=== PATIENT | female | born 1980 | race Caucasian/White ===

== ENCOUNTER 2018-01-12 16:09 | Inpatient (IN) ==
[2018-01-16] MEDS ORDERED: HYDROmorphone PF Inj 2 MG/ML Vial ONE (23:16)
[2018-01-17] MEDS ORDERED: Naloxone Inj 0.4 MG/ML Vial IV.PUSH PRN (00:01)
[2018-01-17] MEDS ORDERED: Dextrose 50% in Water 50 ML Vial IV.PUSH PRN (00:01)
[2018-01-17] MEDS ORDERED: HYDROmorphone PF Inj 2 MG/ML Vial IV.PUSH PRN (00:01)
[2018-01-17] MEDS ORDERED: Acetaminophen 325 MG Tablet PO PRN (00:01)
[2018-01-17] MEDS: Sod Chloride 0.9% Inj 1,000 ML IV.SIG SCH ×3 (03:41→19:38)
[2018-01-17] MEDS: Lisinopril 20 MG Tablet PO SCH (08:41)
[2018-01-17] MEDS: Pantoprazole Sodium 20 MG DR Tablet PO SCH (08:41)
[2018-01-17] MEDS: FLUoxetine 10 MG Capsule PO SCH (08:42)
[2018-01-17 08:46] LABS: Anion Gap 9 meq/L (5-15); Blood Urea Nitrogen 6 mg/dL (7-18); Calcium 8.5 mg/dL (8.5-10.1); Carbon Dioxide 25.4 meq/L (21.0-32.0); Chloride 105 meq/L (98-107); Cholesterol 359 mg/dL (120-200); Glomerular Filtration Rate Greater Than 89 mL/min (>89); Glucose,Random 205 mg/dL (74-106); Potassium 3.5 meq/L (3.5-5.1); Sodium 139 meq/L (136-145); Triglycerides 534 mg/dL (42-150)
[2018-01-17 08:49] LABS: HDL Cholesterol 25.1 mg/dL (40.0-60.0)
[2018-01-17] MEDS ORDERED: Senna/Docusate Sodium 8.6/50 MG Tablet PO SCH (09:00)
[2018-01-17] MEDS: Insulin Detemir Inj 1,000 UNIT/10 ML Vial SQ SCH ×2 (09:04→21:55)
[2018-01-17] MEDS: Insulin NovoLOG Aspart Correctional Sugar Inj SQ SCH ×4 (09:04→21:56)
[2018-01-17] MEDS: [UNRECOGNIZED DRUG - OTHER] PO SCH ×3 (10:27→17:49)
[2018-01-17] MEDS: Gemfibrozil 600 MG Tablet PO SCH ×2 (10:30→17:47)
--- NOTE | 2018-01-17 13:46 | P.PNIM ---
Subjective Interval history: Pt is having significant diarrhea which seems to be worsening over the last day or so No melena or BRBPR Tolerating regular consistency diet Afebrile Physical Exam Vital signs: Vital Signs 01/17/18 00:00 01/17/18 01:45 01/17/18 02:58 Temperature 98.2 F Pulse Rate 77 Respiratory Rate 18 18 18 Blood Pressure 169/82 H Pulse Oximetry 96 01/17/18 04:00 01/17/18 08:00 01/17/18 12:00 Temperature 97.5 F L 97.8 F 98.3 F Pulse Rate 77 75 84 Respiratory Rate 18 18 17 Blood Pressure 146/85 H 158/82 H 183/90 H Pulse Oximetry 93 L 95 95 Intake & Output 01/16/18 01/17/18 01/17/18 18:59 06:59 18:59 Weight 85 kg 85.1 kg Other: # Voids 5 # Bowel Movements 2 Narrative: General: NAD, AAOx3 Chest: CTA Cardiac: Regular Abd: +BS, soft ND/NT Ext: No edema Results - Labs CBC & Chem 7: 01/20/18 04:55 01/20/18 04:55 Laboratory Results - last 24 hr 01/13/18 01/13/18 01/14/18 09:55 09:55 03:14 WBC 14.2 H RBC 4.95 Hgb 12.6 D Hct 37.5 MCV 75.8 L MCH 25.4 L MCHC 33.5 RDW 15.7 Plt Count 487 H MPV 7.7 Neut % (Auto) 77.1 H Lymph % (Auto) 17.5 [place] % (Auto) 4.6 Eos % (Auto) 0.3 Baso % (Auto) 0.5 Neut # (Auto) 10.5 H Lymph # (Auto) 2.4 [place] # (Auto) 0.6 Eos # (Auto) 0.0 Baso # (Auto) 0.1 CBC Comment AUTO DIFF Total Counted 100 Neutrophils % (Manual) 76 H Band Neutrophils % 1 Lymphocytes % 20 Monocytes % 2 Neutrophils # (Manual) 11.1 H Myelocytes 1 H Differential Comment FINAL DIFF MANUAL Platelet Estimate HIGH H Plt Morphology Comment NORMAL RBC Morph Comment NORMAL Hematology Comments Sodium 132 L 135 L Potassium 3.9 4.2 Chloride 99 105 Carbon Dioxide 17.3 L D 20.7 L Anion Gap 16 H 9 BUN 2 L 5 L Creatinine 0.41 L 0.57 Estimated GFR 174 119 Random Glucose 284 H 188 H Hemoglobin A1c 11.1 H Calcium 7.6 L 8.1 L Total Bilirubin 0.9 AST 28 ALT 37 Alkaline Phosphatase 115 Total Protein 8.2 D Albumin 3.2 L Triglycerides 2860 H 1450 H Cholesterol 433 H D 344 H D LDL Cholesterol, Calc LDL Cholesterol HDL Cholesterol 27.3 L 33.2 L Cholesterol/HDL Ratio 15.86 10.36 Lipase 916 H 01/14/18 01/15/18 01/16/18 03:14 05:32 06:21 WBC 11.3 H RBC 4.44 Hgb 11.1 L Hct 33.3 L MCV 74.9 L MCH 25.0 L MCHC 33.3 RDW 15.9 Plt Count 352 MPV 7.6 Neut % (Auto) 75.2 H Lymph % (Auto) 19.8 [place] % (Auto) 3.8 Eos % (Auto) 0.5 Baso % (Auto) 0.7 Neut # (Auto) 8.5 H Lymph # (Auto) 2.2 [place] # (Auto) 0.4 Eos # (Auto) 0.1 Baso # (Auto) 0.1 CBC Comment DIFF FINAL Total Counted Neutrophils % (Manual) Band Neutrophils % Lymphocytes % Monocytes % Neutrophils # (Manual) Myelocytes Differential Comment Platelet Estimate Plt Morphology Comment RBC Morph Comment Hematology Comments Sodium 139 Potassium 3.7 Chloride 105 Carbon Dioxide 26.0 Anion Gap 8 BUN 4 L Creatinine 0.40 L Estimated GFR 179 Random Glucose 217 H Hemoglobin A1c Calcium 8.3 L Total Bilirubin AST ALT Alkaline Phosphatase Total Protein Albumin Triglycerides 926 H 594 H Cholesterol 411 H D 388 H LDL Cholesterol, Calc LDL Cholesterol HDL Cholesterol 37.1 L 30.5 L Cholesterol/HDL Ratio 11.07 12.72 Lipase 158 01/17/18 06:33 WBC RBC Hgb Hct MCV MCH MCHC RDW Plt Count MPV Neut % (Auto) Lymph % (Auto) [place] % (Auto) Eos % (Auto) Baso % (Auto) Neut # (Auto) Lymph # (Auto) [place] # (Auto) Eos # (Auto) Baso # (Auto) CBC Comment Total Counted Neutrophils % (Manual) Band Neutrophils % Lymphocytes % Monocytes % Neutrophils # (Manual) Myelocytes Differential Comment Platelet Estimate Plt Morphology Comment RBC Morph Comment Hematology Comments Sodium 139 Potassium 3.5 Chloride 105 Carbon Dioxide 25.4 Anion Gap 9 BUN 6 L Creatinine 0.42 L Estimated GFR Greater than 89 Random Glucose 205 H Hemoglobin A1c Calcium 8.5 Total Bilirubin AST ALT Alkaline Phosphatase Total Protein Albumin Triglycerides 534 H Cholesterol 359 H LDL Cholesterol, Calc LDL Cholesterol HDL Cholesterol 25.1 L Cholesterol/HDL Ratio 14.30 Lipase Assessment and Plan - Assessment (1) Pancreatitis Code(s): K85.90 - Acute pancreatitis without necrosis or infection, unspecified Status: Acute Plan: Acute pancreatitis secondary to hypertriglyceridemia. - This is a 38 year old female with HTN, iron deficiency anemia, PCOS, anxiety/ depression, DM type [address] Bryson, stage 3 cirrhosis, fatty liver, hereditary hypertriglyceridemia (per out patient records triglycerides as high as 5300 in 2017) and pancreatitis about 5 year ago. - Pt admitted with abdominal pain, N/V x 3-4 days and her labs at admission noted Lipase 1397 - CT abd/pelvis (01/12/18) --> There are mild inflammatory type changes surrounding the tail the pancreas. Otherwise, the pancreas demonstrates no abnormality. These findings could represent a mild acute pancreatitis. Nonacute findings include hepatomegaly with steatosis and splenomegaly. - Lipid panel on 01/12 revealed triglycerides 6100 and HgbA1c 11.1% - Pt was started on aggressive IVF with NS - She was started on Lopid/niacin. no omega fatty acid on formulary. resume [place] on dc - Stopped TriCor and Crestor. - On 01/13 pt was moved to ICU for insulin infusion to rapidly lower triglycerides. - Repeat labs on showed the trend down to 2860 (01/13) --> 1450 (01/14) --> 926 () --> 594 (01/16) - She was transferred out of ICU on 01/15 and started on basal/bolus regimen with Levemir 20 units BID and NovoLog SSI - Pt will need to overhaul her DM control as her A1c is rising. There is probably also a component of diet noncompliance - Levemir titrated up to 25units BID on 01/16 - Pain control PRN - Pt tolerating advance to diabetic diet - She started having diarrhea the last 2 days. Stop stool softener. Check stool for C. diff. If negative can given Imodium. - Give some gentle IVF today - Pt will need endo f/u upon discharge DVT prophylaxis with SCDs (2) Hypertriglyceridemia Code(s): E78.1 - Pure hyperglyceridemia Status: Chronic Plan: Hereditary hypertriglyceridemia - See above (3) Diabetes Code(s): E11.9 - Type 2 diabetes mellitus without complications Status: Chronic Plan: Diabetes mellitus - See above (4) HTN (hypertension) Code(s): I10 - Essential (primary) hypertension Status: Chronic Plan: Hypertension - Continue patient's lisinopril 20 mg p.o. daily (5) Depression Code(s): F32.9 - Major depressive disorder, single episode, unspecified Status : Chronic Plan: Anxiety/depression - Continue patient's home fluoxetine 30 mg daily - Attending Attestation The exam, history, and the medical decision-making described in the above note were completed with the assistance of the mid-level provider. I reviewed and agree with the findings presented. I attest that I had a [id number] encounter with the patient on the same day, and personally performed and documented my assessment and findings in the medical record. Patient examined. Assessment and plan formulated with Yenni Mcaculey PA-C. I agree with the above. (3) Diabetes Qualifiers: Diabetes mellitus type: type 2
[2018-01-17] MEDS: KCL 20 mEq/NACL 0.45% Inj 1,000 ML IV.CONT SCH (17:26)
[2018-01-18] MEDS: KCL 20 mEq/NACL 0.45% Inj 1,000 ML IV.CONT SCH ×2 (00:18→16:04)
[2018-01-18] MEDS: [UNRECOGNIZED DRUG - OTHER] PO SCH ×3 (00:18→16:01)
[2018-01-18] MEDS: Sod Chloride 0.9% Inj 1,000 ML IV.SIG SCH ×3 (02:54→18:33)
[2018-01-18 05:19] LABS: Anion Gap 9 meq/L (5-15); Blood Urea Nitrogen 7 mg/dL (7-18); Calcium 8.7 mg/dL (8.5-10.1); Carbon Dioxide 23.6 meq/L (21.0-32.0); Chloride 104 meq/L (98-107); Glomerular Filtration Rate Greater Than 89 mL/min (>89); Glucose,Random 231 mg/dL (74-106); Potassium 3.4 meq/L (3.5-5.1); Sodium 137 meq/L (136-145)
[2018-01-18 05:20] LABS: Cholesterol 326 mg/dL (120-200); Triglycerides 576 mg/dL (42-150)
[2018-01-18 05:23] LABS: Chol/HDL Ratio 14.68 Ratio; HDL Cholesterol 22.2 mg/dL (40.0-60.0)
[2018-01-18] MEDS: Lisinopril 20 MG Tablet PO SCH (08:46)
[2018-01-18] MEDS: FLUoxetine 10 MG Capsule PO SCH (08:46)
[2018-01-18] MEDS: Pantoprazole Sodium 20 MG DR Tablet PO SCH (08:46)
[2018-01-18] MEDS: Insulin Detemir Inj 1,000 UNIT/10 ML Vial SQ SCH ×2 (08:58→23:50)
[2018-01-18] MEDS: Insulin NovoLOG Aspart Correctional Sugar Inj SQ SCH ×4 (08:59→23:55)
[2018-01-18] MEDS: Gemfibrozil 600 MG Tablet PO SCH ×2 (11:01→17:20)
--- NOTE | 2018-01-18 12:50 | P.PNIM ---
Physical Exam Vital signs: Vital Signs 01/17/18 14:48 01/17/18 16:00 01/17/18 20:00 Temperature 97.6 F 97.8 F Pulse Rate 70 67 Respiratory Rate 18 18 Blood Pressure 160/70 H 174/81 H Pulse Oximetry 97 97 97 01/18/18 00:00 01/18/18 04:00 01/18/18 04:05 Temperature 97.9 F 97.7 F Pulse Rate 63 65 Respiratory Rate 18 18 18 Blood Pressure 177/81 H 161/81 H Pulse Oximetry 96 97 01/18/18 05:59 01/18/18 08:00 Temperature 97.5 F L Pulse Rate 70 Respiratory Rate 17 18 Blood Pressure 157/75 H Pulse Oximetry Intake & Output 01/17/18 01/18/18 01/18/18 18:59 06:59 18:59 Intake Total 1100 / 1100 Balance 1100 / 1100 Weight 85.1 kg Intake: Oral 1100 / 1100 Other: # Voids 6 4 Date of Last Bowel Movement 01/18/18 # Bowel Movements 1 Narrative: General: NAD, AAOx3 Chest: CTA Cardiac: Regular Abd: +BS, soft ND/NT Ext: No edema Results - Labs CBC & Chem 7: 01/14/18 03:14 01/18/18 04:29 Laboratory Results - last 24 hr 01/17/18 01/17/18 01/18/18 20:40 21:30 04:29 Sodium 137 Potassium 3.4 L Chloride 104 Carbon Dioxide 23.6 Anion Gap 9 BUN 7 Creatinine 0.49 L Estimated GFR Greater than 89 POC Glucose 245 H Random Glucose 231 H Calcium 8.7 Triglycerides 576 H Cholesterol 326 H LDL Cholesterol, Calc HDL Cholesterol 22.2 L Cholesterol/HDL Ratio 14.68 Stl C.difficile Tox PCR Negative St C. diff Tox Epid 027 Negative 01/18/18 01/18/18 08:50 12:31 Sodium Potassium Chloride Carbon Dioxide Anion Gap BUN Creatinine Estimated GFR POC Glucose 292 H 210 H Random Glucose Calcium Triglycerides Cholesterol LDL Cholesterol, Calc HDL Cholesterol Cholesterol/HDL Ratio Stl C.difficile Tox PCR St C. diff Tox Epid 027 Assessment and Plan - Assessment (1) Pancreatitis Code(s): K85.90 - Acute pancreatitis without necrosis or infection, unspecified Status: Acute Plan: Acute pancreatitis secondary to hypertriglyceridemia. - This is a 38 year old female with HTN, iron deficiency anemia, PCOS, anxiety/ depression, DM type [address] Bryson, stage 3 cirrhosis, fatty liver, hereditary hypertriglyceridemia (per out patient records triglycerides as high as 5300 in 2017) and pancreatitis about 5 year ago. - Pt admitted with abdominal pain, N/V x 3-4 days and her labs at admission noted Lipase 1397 - CT abd/pelvis (01/12/18) --> There are mild inflammatory type changes surrounding the tail the pancreas. Otherwise, the pancreas demonstrates no abnormality. These findings could represent a mild acute pancreatitis. Nonacute findings include hepatomegaly with steatosis and splenomegaly. - Lipid panel on 01/12 revealed triglycerides 6100 and HgbA1c 11.1% - Pt was started on aggressive IVF with NS - She was started on Lopid/niacin. no omega fatty acid on formulary. resume [place] on dc - Stopped TriCor and Crestor. - On 01/13 pt was moved to ICU for insulin infusion to rapidly lower triglycerides. - Repeat labs on showed the trend down to 2860 (01/13) --> 1450 (01/14) --> 926 () --> 594 (01/16) - She was transferred out of ICU on 01/15 and started on basal/bolus regimen with Levemir 20 units BID and NovoLog SSI - Pt will need to overhaul her DM control as her A1c is rising. There is probably also a component of diet noncompliance - Levemir titrated up to 25units BID on 01/16 - Pain control PRN - Pt tolerating advance to diabetic diet - She started having diarrhea 2 days ago. Stool softener stopped. Stool negative for C. diff. - Give some gentle IVF today - Pt will need endo f/u upon discharge DVT prophylaxis with SCDs (2) Hypertriglyceridemia Code(s): E78.1 - Pure hyperglyceridemia Status: Chronic Plan: Hereditary hypertriglyceridemia - See above (3) Diabetes Code(s): E11.9 - Type 2 diabetes mellitus without complications Status: Chronic Plan: Diabetes mellitus - See above (4) HTN (hypertension) Code(s): I10 - Essential (primary) hypertension Status: Chronic Plan: Hypertension - Continue patient's lisinopril 20 mg p.o. daily (5) Depression Code(s): F32.9 - Major depressive disorder, single episode, unspecified Status : Chronic Plan: Anxiety/depression - Continue patient's home fluoxetine 30 mg daily (3) Diabetes Qualifiers: Diabetes mellitus type: type 2
--- NOTE | 2018-01-18 14:28 | P.DS ---
<Yenni Mccauley E - Last Filed: 05/05/18 14:59> Date of admission: 01/12/18 16:10 Primary care physician: Dr. Paola Campbell Attending physician on discharge: Alexys Kumar Anticipated date of discharge: 01/18/18 Brief History from admission: This is a 38 year old female patient with a past medical history which includes : HTN, iron deficiency anemia, PCOS, anxiety/depression, DM type [address] Bryson, stage 3 cirrhosis, fatty liver, hereditary hypertriglyceridemia (per out patient records triglycerides as high as 5300 in 2017) and pancreatitis about 5 year ago. Patient has had aching stabbing abdominal pain across upper abdomen worse left upper quadrant for the past 3-4 days. Abd pain is worse with taking a deep breath. Does not seem to be affected by food. Patient initially tried to put it off then vomited after eating earlier today. Vomitus was which was yellow mixed with food, no coffee ground appearance or blood present. Patient endorses diarrhea today. Patient denies fevers, Chills, fevers, chills or shortness of breath. Patient also denies daily ETOH use. Last ETOH was glass of wine in November. Patient reports that she has been desensitized to [facility] at [facility] Lipase 1397 CT abd/pelvis reviewd and reveals: 1. There are mild inflammatory type changes surrounding the tail the pancreas. Otherwise, the pancreas demonstrates no abnormality. These findings could represent a mild acute pancreatitis. 2. Nonacute findings include hepatomegaly with steatosis and splenomegaly. DS: Diagnosis - Discharge Diagnosis (1) Pancreatitis Status: Acute (2) Hypertriglyceridemia Status: Chronic (3) Diabetes Status: Chronic (4) HTN (hypertension) Status: Chronic (5) Depression Status: Chronic DS: Medications - Discharge Medications Prescriptions: cholestyramine (with sugar) 2 gm PO DAILY #30 ea fluoxetine 30 mg PO DAILY #30 cap DS: Summary Hospital Course: Acute pancreatitis secondary to hypertriglyceridemia Hereditary hypertriglyceridemia Diabetes mellitus - This is a 38 year old female with HTN, iron deficiency anemia, PCOS, anxiety/ depression, DM type [address] Bryson, stage 3 cirrhosis, fatty liver, hereditary hypertriglyceridemia (per out patient records triglycerides as high as 5300 in 2017) and pancreatitis about 5 year ago. Pt admitted with abdominal pain, N/V x 3-4 days and her labs at admission noted Lipase 1397. CT abd/ pelvis (01/12/18) --> There are mild inflammatory type changes surrounding the tail the pancreas. Otherwise, the pancreas demonstrates no abnormality. These findings could represent a mild acute pancreatitis. Nonacute findings include hepatomegaly with steatosis and splenomegaly. Lipid panel on 01/12 revealed triglycerides 6100 and HgbA1c 11.1%. Pt was started on aggressive IVF with NS. She was started on Lopid/niacin. no omega fatty acid on formulary. Resume [place] on d/c. Stopped TriCor and Crestor. On pt was moved to ICU for insulin infusion to rapidly lower triglycerides. Repeat labs on showed the trend down to 2860 (01/13) --> 1450 (01/14) --> 926 () --> 594 (01/16) --> 534 (01/17) --> 576 (01/18). She was transferred out of ICU on 01/15 and started on basal/bolus regimen with Levemir 20 units BID and NovoLog SSI. Pt will need to overhaul her DM control as her A1c is rising and will need close followup with her Trainmaster, Dr. Love. There is probably also a component of diet noncompliance. Levemir titrated up to 25units BID on 01/16. BS stil running in the mid to low 200s/ Pt tolerating advance to diabetic diet. She started having diarrhea during admission and stool softener was stopped and she was given some gentle IVF. Stool negative for C. diff. Her diarrhea improved but she was still having some soft stools on the day of discharge. Pt will need to followup with her Trainmaster in the next week as well as her PCP, Dr. Campbell. She will continue her previous home regimen for her diabetes but her cholesterol medications will be changed to the Lopid, Niacin and she will resume her Omega3. Hypertension - Continue patient's lisinopril 20 mg p.o. daily Anxiety/depression - Continue patient's home fluoxetine 30 mg daily - Time Spent with Patient Total time spent providing and/or coordinating discharge services: Greater than 30 minutes Exam Vital signs: Vital Signs 01/17/18 14:48 01/17/18 16:00 01/17/18 20:00 Temperature 97.6 F 97.8 F Pulse Rate 70 67 Respiratory Rate 18 18 Blood Pressure 160/70 H 174/81 H Pulse Oximetry 97 97 97 01/18/18 00:00 01/18/18 04:00 01/18/18 04:05 Temperature 97.9 F 97.7 F Pulse Rate 63 65 Respiratory Rate 18 18 18 Blood Pressure 177/81 H 161/81 H Pulse Oximetry 96 97 01/18/18 05:59 01/18/18 08:00 Temperature 97.5 F L Pulse Rate 70 Respiratory Rate 17 18 Blood Pressure 157/75 H Pulse Oximetry Intake & Output 01/17/18 01/18/18 01/18/18 18:59 06:59 18:59 Intake Total 1100 / 1100 Balance 1100 / 1100 Weight 85.1 kg Intake: Oral 1100 / 1100 Other: # Voids 6 4 Date of Last Bowel Movement 01/18/18 # Bowel Movements 1 Narrative: General: NAD, AAOx3 Chest: CTA Cardiac: Regular Abd: +BS, soft ND/NT Ext: No edema Results Procedures completed during hospitalization: No Procedures Labs on day of discharge: Labs from last 24 hours 01/18/18 01/18/18 01/18/18 12:31 08:50 04:29 Sodium 137 Potassium 3.4 L Chloride 104 Carbon Dioxide 23.6 Anion Gap 9 BUN 7 Creatinine 0.49 L Estimated GFR Greater than 89 POC Glucose 210 H 292 H Random Glucose 231 H Calcium 8.7 Triglycerides 576 H Cholesterol 326 H LDL Cholesterol, Calc HDL Cholesterol 22.2 L Cholesterol/HDL Ratio 14.68 Stl C.difficile Tox PCR St C. diff Tox Epid 027 01/17/18 01/17/18 21:30 20:40 Sodium Potassium Chloride Carbon Dioxide Anion Gap BUN Creatinine Estimated GFR POC Glucose 245 H Random Glucose Calcium Triglycerides Cholesterol LDL Cholesterol, Calc HDL Cholesterol Cholesterol/HDL Ratio Stl C.difficile Tox PCR Negative St C. diff Tox Epid 027 Negative <Alexys Kumar - Last Filed: 05/07/18 11:42> Date of admission: 01/12/18 16:10 Primary care physician: UNKNOWN DS: Diagnosis - Discharge Diagnosis (1) Pancreatitis Status: Acute (2) Hypertriglyceridemia Status: Chronic (3) Diabetes Status: Chronic (4) HTN (hypertension) Status: Chronic (5) Depression Status: Chronic DS: Summary Hospital Course: The exam, history, and the medical decision-making described in the above note were completed with the assistance of the mid-level provider. I reviewed and agree with the findings presented. I attest that I had a [id number] encounter with the patient on the same day, and personally performed and documented my assessment and findings in the medical record. Patient examined. Assessment and plan formulated with Yenni Mccauley PA-C. I agree with the above. - Time Spent with Patient Total time spent providing and/or coordinating discharge services: Greater than 30 minutes Discharge Plan - Discharge Order Discharge Orders: Discharge Order (Routine); Ordered 01/20/18 Ordered By: Ira Martinez - Discharge Details Anticipated Discharge Date: 01/20/18 - Physicians Team Primary Care Provider: UNKNOWN, Attending Provider: Prem Cummins Other Providers: Paola Campbell MD - Rxs /Orders / Referrals /Forms Prescriptions: New cholestyramine (with sugar) 4 gram Powder In Packet 2 gm PO DAILY Qty: 30 RF: 0 fluoxetine 10 mg Capsule 30 mg PO DAILY Qty: 30 RF: 0 Continue insulin aspart U-100 100 unit/mL Solution 15 unit SUB-Q BID insulin degludec 100 unit/mL (3 mL) Insulin Pen 85 unit SUB-Q HS lisinopril 20 mg Tablet 20 mg PO DAILY metformin 500 mg Tablet Extended Release 24 Hr 1,000 mg PO BID [id number] oil [[place]-3 (with dpa)] 1,050-1,200 mg Capsule 1 cap PO DAILY pantoprazole 20 mg Tablet,Delayed Release (Dr/Ec) 20 mg PO DAILY Discontinued fenofibrate nanocrystallized 145 mg Tablet 145 mg PO ONCE fluoxetine 20 mg Capsule 20 mg PO QAM naproxen 500 mg Tablet 500 mg PO BID rosuvastatin 40 mg Tablet 40 mg PO DAILY Referrals: Niurka Us MD [Physician] - See Instructions (1 week) Paola Campbell MD [Physician] - See Instructions (1 week) UNKNOWN, [Primary Care Provider] - See Instructions Mp Bryson MD [ENDOCRINOLOGY] - See Instructions (1 week) - Discharge Instructions Patient Printed Instructions: Pancreatitis (DC), Low Fat Diet (GEN), Type 2 Diabetes in Adults (GEN), Acute Abdominal Pain (DC) Additional Instructions: Diabetic diet as tolerated Prescriptions given at time of discharge Take medication as prescribed Follow up with MD as instructed - Post Discharge Care Plan Care Plan Goals: Your Health Problems: Goals to Promote Your Health: * To prevent worsening of your condition * To maintain your health at the optimal level Directions to Meet Your Goals: * Take your medications as prescribed * Follow your dietary instruction * Follow activity as directed * Keep your appointments as scheduled * Take your immunizations and boosters as scheduled * If your symptoms worsen call your PCP * If no PCP go to Urgent Care or Emergency Room Smoking is dangerous to your health. Avoid second hand smoke. You may reach the [employer] crisis hotline for domestic abuse at 2-288-591- 5060.Your Health Problems: Goals to Promote Your Health: * To prevent worsening of your condition * To maintain your health at the optimal level Directions to Meet Your Goals: * Take your medications as prescribed * Follow your dietary instruction * Follow activity as directed * Keep your appointments as scheduled * Take your immunizations and boosters as scheduled * If your symptoms worsen call your PCP * If no PCP go to Urgent Care or Emergency Room Smoking is dangerous to your health. Avoid second hand smoke. You may reach the [employer] for domestic abuse at .
--- NOTE | 2018-01-18 15:58 | P.PNIM ---
Subjective Interval history: Less diarrhea today, stool is soft Afebrile Pt had been planned for discharge today but since her diarrhea has not resolved we will hold the discharge until the morning. Physical Exam Vital signs: Vital Signs 01/17/18 16:00 01/17/18 20:00 01/18/18 00:00 Temperature 97.6 F 97.8 F 97.9 F Pulse Rate 70 67 63 Respiratory Rate 18 18 18 Blood Pressure 160/70 H 174/81 H 177/81 H Pulse Oximetry 97 97 96 01/18/18 04:00 01/18/18 04:05 01/18/18 05:59 Temperature 97.7 F Pulse Rate 65 Respiratory Rate 18 18 17 Blood Pressure 161/81 H Pulse Oximetry 97 01/18/18 08:00 01/18/18 12:00 Temperature 97.5 F L 97.3 F L Pulse Rate 70 86 Respiratory Rate 18 18 Blood Pressure 157/75 H 167/76 H Pulse Oximetry 98 Intake & Output 01/17/18 01/18/18 01/18/18 18:59 06:59 18:59 Intake Total 1100 / 1100 Balance 1100 / 1100 Weight 85.1 kg Intake: Oral 1100 / 1100 Other: # Voids 6 4 Date of Last Bowel Movement 01/18/18 # Bowel Movements 1 Narrative: General: NAD, AAOx3 Chest: CTA Cardiac: Regular Abd: +BS, soft ND/NT Ext: No edema Results - Labs CBC & Chem 7: 01/20/18 04:55 01/20/18 04:55 Laboratory Results - last 24 hr 01/17/18 01/17/18 01/18/18 20:40 21:30 04:29 Sodium 137 Potassium 3.4 L Chloride 104 Carbon Dioxide 23.6 Anion Gap 9 BUN 7 Creatinine 0.49 L Estimated GFR Greater than 89 POC Glucose 245 H Random Glucose 231 H Calcium 8.7 Triglycerides 576 H Cholesterol 326 H LDL Cholesterol, Calc HDL Cholesterol 22.2 L Cholesterol/HDL Ratio 14.68 Stl C.difficile Tox PCR Negative St C. diff Tox Epid 027 Negative 01/18/18 01/18/18 08:50 12:31 Sodium Potassium Chloride Carbon Dioxide Anion Gap BUN Creatinine Estimated GFR POC Glucose 292 H 210 H Random Glucose Calcium Triglycerides Cholesterol LDL Cholesterol, Calc HDL Cholesterol Cholesterol/HDL Ratio Stl C.difficile Tox PCR St C. diff Tox Epid 027 - Procedures No Procedures Assessment and Plan - Assessment (1) Pancreatitis Code(s): K85.90 - Acute pancreatitis without necrosis or infection, unspecified Status: Acute Plan: Acute pancreatitis secondary to hypertriglyceridemia. - This is a 38 year old female with HTN, iron deficiency anemia, PCOS, anxiety/ depression, DM type [address] Bryson, stage 3 cirrhosis, fatty liver, hereditary hypertriglyceridemia (per out patient records triglycerides as high as 5300 in 2017) and pancreatitis about 5 year ago. - Pt admitted with abdominal pain, N/V x 3-4 days and her labs at admission noted Lipase 1397 - CT abd/pelvis (01/12/18) --> There are mild inflammatory type changes surrounding the tail the pancreas. Otherwise, the pancreas demonstrates no abnormality. These findings could represent a mild acute pancreatitis. Nonacute findings include hepatomegaly with steatosis and splenomegaly. - Lipid panel on 01/12 revealed triglycerides 6100 and HgbA1c 11.1% - Pt was started on aggressive IVF with NS - She was started on Lopid/niacin. no omega fatty acid on formulary. resume [place] on dc - Stopped TriCor and Crestor. - On 01/13 pt was moved to ICU for insulin infusion to rapidly lower triglycerides. - Repeat labs on showed the trend down to 2860 (01/13) --> 1450 (01/14) --> 926 () --> 594 (01/16) - She was transferred out of ICU on 01/15 and started on basal/bolus regimen with Levemir 20 units BID and NovoLog SSI - Pt will need to overhaul her DM control as her A1c is rising. There is probably also a component of diet noncompliance - Levemir titrated up to 25units BID on 01/16 - Pain control PRN - Pt tolerating advance to diabetic diet - She started having diarrhea 3 days ago. Stop stool softener. Stool for C. diff are negative. Diarrhea has improved. - Stop IVF - Pt will need endo f/u upon discharge DVT prophylaxis with SCDs Hereditary hypertriglyceridemia - See above Diabetes mellitus - See above Hypertension - Continue patient's lisinopril 20 mg p.o. daily (2) Hypertriglyceridemia Code(s): E78.1 - Pure hyperglyceridemia Status: Chronic (3) Diabetes Code(s): E11.9 - Type 2 diabetes mellitus without complications Status: Chronic (4) HTN (hypertension) Code(s): I10 - Essential (primary) hypertension Status: Chronic (5) Depression Code(s): F32.9 - Major depressive disorder, single episode, unspecified Status : Chronic - Attending Attestation The exam, history, and the medical decision-making described in the above note were completed with the assistance of the mid-level provider. I reviewed and agree with the findings presented. I attest that I had a [id number] encounter with the patient on the same day, and personally performed and documented my assessment and findings in the medical record. Patient examined. Assessment and plan formulated with Yenni Mccauley PA-C. I agree with the above. (3) Diabetes Qualifiers: Diabetes mellitus type: type 2
[2018-01-19] MEDS: KCL 20 mEq/NACL 0.45% Inj 1,000 ML IV.CONT SCH ×3 (01:10→17:04)
[2018-01-19] MEDS: [UNRECOGNIZED DRUG - OTHER] PO SCH ×5 (01:21→23:26)
[2018-01-19] MEDS: Sod Chloride 0.9% Inj 1,000 ML IV.SIG SCH ×3 (04:41→18:27)
[2018-01-19] MEDS: Pantoprazole Sodium 20 MG DR Tablet PO SCH (08:31)
[2018-01-19] MEDS: FLUoxetine 10 MG Capsule PO SCH (08:31)
[2018-01-19] MEDS: Gemfibrozil 600 MG Tablet PO SCH ×2 (08:31→17:39)
[2018-01-19] MEDS: Lisinopril 20 MG Tablet PO SCH (08:32)
[2018-01-19] MEDS: Insulin Detemir Inj 1,000 UNIT/10 ML Vial SQ SCH ×2 (08:34→22:05)
[2018-01-19] MEDS: Insulin NovoLOG Aspart Correctional Sugar Inj SQ SCH ×4 (08:40→22:05)
--- NOTE | 2018-01-19 09:25 | P.PNIM ---
Subjective Interval history: Pt reports that she had about 7 small loose BMs yesterday and 2 so far this morning She reports that it is not unusual for her to have diarrhea, especially while taking Metformin at home but this is more than her typically diarrhea. She is having some increased left sided flank pain this morning. Physical Exam Vital signs: Vital Signs 01/18/18 12:00 01/18/18 16:00 01/18/18 17:53 Temperature 97.3 F L 97.8 F Pulse Rate 86 71 Respiratory Rate 18 18 20 Blood Pressure 167/76 H 155/74 H Pulse Oximetry 98 97 01/18/18 20:00 01/19/18 00:00 01/19/18 04:00 Temperature 97.5 F L 97.1 F L 97.5 F L Pulse Rate 68 71 76 Respiratory Rate 16 16 16 Blood Pressure 174/78 H 179/79 H Pulse Oximetry 96 100 96 Intake & Output 01/18/18 01/19/18 01/19/18 18:59 06:59 18:59 Intake Total 1150 / 1150 1000 / 1000 Output Total 850 / 850 Balance 300 / 300 1000 / 1000 Intake: IV 1000 / 1000 Potassium Chlor 20 mEq/NACL 0. 1000 / 1000 45% Inj 1,000 ML @ 125 mls/hr IV.CONT .Q8H [facility] Rx#:[id number] Oral 1150 / 1150 Output: Urine 850 / 850 Other: Other Intake Source Saline Solution # Voids 8 3 Date of Last Bowel Movement 01/18/18 # Bowel Movements 6 Narrative: General: NAD, AAOx3 Chest: CTA Cardiac: Regular Abd: +BS, soft , left flank and upper back pain Ext: No edema Results - Labs CBC & Chem 7: 01/20/18 04:55 01/20/18 04:55 Laboratory Results - last 24 hr 01/18/18 01/18/18 01/18/18 12:31 17:31 23:16 POC Glucose 210 H 232 H 217 H 01/19/18 08:25 POC Glucose 196 H - Procedures No Procedures Assessment and Plan - Assessment (1) Pancreatitis Code(s): K85.90 - Acute pancreatitis without necrosis or infection, unspecified Status: Acute Plan: Acute pancreatitis secondary to hypertriglyceridemia. - This is a 38 year old female with HTN, iron deficiency anemia, PCOS, anxiety/ depression, DM type [address] Bryson, stage 3 cirrhosis, fatty liver, hereditary hypertriglyceridemia (per out patient records triglycerides as high as 5300 in 2017) and pancreatitis about 5 year ago. - Pt admitted with abdominal pain, N/V x 3-4 days and her labs at admission noted Lipase 1397 - CT abd/pelvis (01/12/18) --> There are mild inflammatory type changes surrounding the tail the pancreas. Otherwise, the pancreas demonstrates no abnormality. These findings could represent a mild acute pancreatitis. Nonacute findings include hepatomegaly with steatosis and splenomegaly. - Lipid panel on 01/12 revealed triglycerides 6100 and HgbA1c 11.1% - Pt was started on aggressive IVF with NS - She was started on Lopid/niacin. no omega fatty acid on formulary. resume [place] on dc - Stopped TriCor and Crestor. - On 01/13 pt was moved to ICU for insulin infusion to rapidly lower triglycerides. - Repeat labs on showed the trend down to 2860 (01/13) --> 1450 (01/14) --> 926 () --> 594 (01/16) - She was transferred out of ICU on 01/15 and started on basal/bolus regimen with Levemir 20 units BID and NovoLog SSI - Pt will need to overhaul her DM control as her A1c is rising. There is probably also a component of diet noncompliance - Levemir titrated up to 25units BID on 01/16 - Pain control PRN - Pt tolerating advance to diabetic diet - She started having diarrhea 3 days ago. Stop stool softener. Stool for C. diff are negative. - She was planned for discharge on 01/18 but her diarrhea increased to 7BMs yesterday so discharge was held - Consider Imodium - IVF - Recheck labs today - Pt will need endo f/u upon discharge DVT prophylaxis with SCDs Hereditary hypertriglyceridemia - See above Diabetes mellitus - See above Hypertension - Continue patient's lisinopril 20 mg p.o. daily (2) Hypertriglyceridemia Code(s): E78.1 - Pure hyperglyceridemia Status: Chronic (3) Diabetes Code(s): E11.9 - Type 2 diabetes mellitus without complications Status: Chronic (4) HTN (hypertension) Code(s): I10 - Essential (primary) hypertension Status: Chronic (5) Depression Code(s): F32.9 - Major depressive disorder, single episode, unspecified Status : Chronic - Attending Attestation The exam, history, and the medical decision-making described in the above note were completed with the assistance of the mid-level provider. I reviewed and agree with the findings presented. I attest that I had a [id number] encounter with the patient on the same day, and personally performed and documented my assessment and findings in the medical record. Patient examined. Assessment and plan formulated with Yenni Mccauley PA-C. I agree with the above. (3) Diabetes Qualifiers: Diabetes mellitus type: type 2
[2018-01-19 12:21] LABS: Alanine Aminotransferase 22 U/L (10-53); Albumin 3.2 g/dL (3.4-5.0); Anion Gap 7 meq/L (5-15); Aspartate Aminotransferase 21 U/L (15-37); Blood Urea Nitrogen 6 mg/dL (7-18); Calcium 8.8 mg/dL (8.5-10.1); Carbon Dioxide 26.9 meq/L (21.0-32.0); Chloride 104 meq/L (98-107); Glomerular Filtration Rate Greater Than 89 mL/min (>89); Glucose,Random 215 mg/dL (74-106); Lipase 266 U/L (73-393); Sodium 138 meq/L (136-145)
[2018-01-19 12:24] LABS: Alkaline Phosphatase 104 U/L (45-117); Total Protein 7.3 g/dL (6.4-8.2)
[2018-01-20] MEDS: KCL 20 mEq/NACL 0.45% Inj 1,000 ML IV.CONT SCH (03:58)
[2018-01-20] MEDS: Sod Chloride 0.9% Inj 1,000 ML IV.SIG SCH ×2 (03:59→10:28)
[2018-01-20 06:17] LABS: Baso % (Auto) 0.6 % (0.0-2.0); Eos # (Auto) 0.2 th/mm3 (0.0-0.4); Eos % (Auto) 3.1 % (0.0-4.0); Hematocrit 36.5 % (35.0-46.0); Hemoglobin 11.9 gm/dL (11.6-15.3); Lymph # (Auto) 2.3 th/mm3 (1.0-4.8); Lymph % (Auto) 31.6 % (9.0-44.0); Mean Corpuscular HGB Conc 32.4 % (32.0-36.0); Mean Corpuscular Volume 73.9 fL (80.0-100.0); Mono # (Auto) 0.5 th/mm3 (0.0-0.9); Mono % (Auto) 7.3 % (0.0-8.0); Neut # (Auto) 4.2 th/mm3 (1.8-7.7); Neut % (Auto) 57.4 % (16.0-70.0); Platelet Count 267 th/mm3 (150-450); Red Blood Count 4.95 mil/mm3 (4.00-5.30); Red Cell Distribution Width 15.4 % (11.6-17.2); White Blood Count 7.3 th/mm3 (4.0-11.0)
[2018-01-20 06:46] LABS: Anion Gap 10 meq/L (5-15); Blood Urea Nitrogen 7 mg/dL (7-18); Carbon Dioxide 22.7 meq/L (21.0-32.0); Chloride 103 meq/L (98-107); Glomerular Filtration Rate Greater Than 89 mL/min (>89); Glucose,Random 219 mg/dL (74-106); Lipase 233 U/L (73-393); Potassium 4.4 meq/L (3.5-5.1); Sodium 136 meq/L (136-145)
[2018-01-20] MEDS: Lisinopril 20 MG Tablet PO SCH (08:13)
[2018-01-20] MEDS: FLUoxetine 10 MG Capsule PO SCH (08:13)
[2018-01-20] MEDS: Pantoprazole Sodium 20 MG DR Tablet PO SCH (08:13)
[2018-01-20] MEDS: Gemfibrozil 600 MG Tablet PO SCH ×2 (08:13→17:07)
[2018-01-20] MEDS: Insulin Detemir Inj 1,000 UNIT/10 ML Vial SQ SCH (08:16)
[2018-01-20] MEDS: Insulin NovoLOG Aspart Correctional Sugar Inj SQ SCH ×3 (08:17→17:07)
[2018-01-20] MEDS: [UNRECOGNIZED DRUG - OTHER] PO SCH (10:27)
[2018-01-20 11:07] VITALS: RESP 16; O2SAT 96
--- NOTE | 2018-01-20 12:30 | P.DS ---
Date of admission: 01/12/18 16:10 Primary care physician: UNKNOWN Attending physician on discharge: Alexys Kumar Anticipated date of discharge: 01/20/18 Brief History from admission: Patient presented with abd pain found to have pancreatitis with triglycerides 6000+ DS: Diagnosis - Discharge Diagnosis (1) Pancreatitis Status: Acute (2) Hypertriglyceridemia Status: Chronic (3) Diabetes Status: Chronic (4) HTN (hypertension) Status: Chronic (5) Depression Status: Chronic DS: Medications - Discharge Medications Prescriptions: cholestyramine (with sugar) 2 gm PO DAILY #30 ea fluoxetine 30 mg PO DAILY #30 cap gemfibrozil [Lopid] 600 mg PO BIDAC 30 Days tab niacin [Niaspan Extended-Release] 500 mg PO HS 30 Days #30 tab DS: Summary Hospital Course: Acute pancreatitis secondary to hypertriglyceridemia. - This is a 38 year old female with HTN, iron deficiency anemia, PCOS, anxiety/ depression, DM type [address] Bryson, stage 3 cirrhosis, fatty liver, hereditary hypertriglyceridemia (per out patient records triglycerides as high as 5300 in 2017) and pancreatitis about 5 year ago. - Pt admitted with abdominal pain, N/V x 3-4 days and her labs at admission noted Lipase 1397 - CT abd/pelvis (01/12/18) --> There are mild inflammatory type changes surrounding the tail the pancreas. Otherwise, the pancreas demonstrates no abnormality. These findings could represent a mild acute pancreatitis. Nonacute findings include hepatomegaly with steatosis and splenomegaly. - Lipid panel on 01/12 revealed triglycerides 6100 and HgbA1c 11.1% - Pt was started on aggressive IVF with NS - She was started on Lopid/niacin. no omega fatty acid on formulary. resume [place] on dc - Stopped TriCor and Crestor. - On 01/13 pt was moved to ICU for insulin infusion to rapidly lower triglycerides. - Repeat labs on showed the trend down to 2860 (01/13) --> 1450 (01/14) --> 926 () --> 594 (01/16) - She was transferred out of ICU on 01/15 and started on basal/bolus regimen with Levemir 20 units BID and NovoLog SSI - Pt will need to overhaul her DM control as her A1c is rising. There is probably also a component of diet noncompliance - Levemir titrated up to 25units BID on 01/16 - Pain control PRN - Pt tolerating advance to diabetic diet - She started having diarrhea 3 days ago. Stop stool softener. Stool for C. diff are negative. - She was planned for discharge on 01/18 but her diarrhea increased to 7BMs yesterday so discharge was held - Consider Imodium - IVF - Recheck labs today - Pt will need endo f/u upon discharge DVT prophylaxis with SCDs Hereditary hypertriglyceridemia - See above Diabetes mellitus - See above Hypertension - Continue patient's lisinopril 20 mg p.o. daily - Time Spent with Patient Total time spent providing and/or coordinating discharge services: Greater than 30 minutes Exam Vital signs: Vital Signs 01/19/18 13:51 01/19/18 17:27 01/19/18 20:16 Temperature 97.7 F Pulse Rate 65 Respiratory Rate 18 Blood Pressure 199/88 H Pulse Oximetry 98 98 97 01/19/18 23:51 01/20/18 03:40 01/20/18 08:00 Temperature 97.4 F L 97.8 F 98.7 F Pulse Rate 68 71 66 Respiratory Rate 18 18 16 Blood Pressure 152/70 H 140/62 Pulse Oximetry 97 95 96 Intake & Output 01/19/18 01/20/18 01/20/18 18:59 06:59 18:59 Intake Total 1999 360 / 360 Balance 1999 360 / 360 Weight 85.1 kg Intake: IV 1999 Potassium Chlor 20 mEq/NACL 0. 1999 45% Inj 1,000 ML @ 85 mls/hr IV .CONT .[id number] [facility] Rx#:[id number] Oral 360 / 360 Other: # Voids 9 Date of Last Bowel Movement 01/19/18 01/19/18 # Bowel Movements 1 - Constitutional no acute distress - Routine HEENT Exam Head: Present: normocephalic, atraumatic Eye: Present: EOMI - Routine Neck Exam Present: supple, full ROM - Routine Respiratory Exam Present: CTA bilaterally. Absent: accessory muscle use - Routine Cardiovascular Exam Present: RRR - Routine Abdominal Exam Present: soft, normoactive bowel sounds. Absent: tenderness, distended - Routine Extremities Exam Present: pulses intact, normal capillary refill. Absent: edema - Routine Skin Exam Present: intact - Routine Neurological Exam Present: oriented X3 Results Procedures completed during hospitalization: No Procedures Labs on day of discharge: Labs from last 24 hours 01/20/18 01/20/18 01/20/18 11:31 08:10 04:55 WBC RBC Hgb Hct MCV MCH MCHC RDW Plt Count MPV Neut % (Auto) Lymph % (Auto) [place] % (Auto) Eos % (Auto) Baso % (Auto) Neut # (Auto) Lymph # (Auto) [place] # (Auto) Eos # (Auto) Baso # (Auto) WBC Differential Differential Comment Sodium 136 Potassium 4.4 Chloride 103 Carbon Dioxide 22.7 Anion Gap 10 BUN 7 Creatinine 0.61 Estimated GFR Greater than 89 POC Glucose 291 H 233 H Random Glucose 219 H Calcium 9.0 Lipase 233 01/20/18 01/19/18 04:55 17:17 WBC 7.3 RBC 4.95 Hgb 11.9 Hct 36.5 MCV 73.9 L MCH 24.0 L MCHC 32.4 RDW 15.4 Plt Count 267 MPV 8.0 Neut % (Auto) 57.4 Lymph % (Auto) 31.6 Gila % (Auto) 7.3 Eos % (Auto) 3.1 Baso % (Auto) 0.6 Neut # (Auto) 4.2 Lymph # (Auto) 2.3 Gila # (Auto) 0.5 Eos # (Auto) 0.2 Baso # (Auto) 0.0 WBC Differential . Differential Comment Auto diff final Sodium Potassium Chloride Carbon Dioxide Anion Gap BUN Creatinine Estimated GFR POC Glucose 215 H Random Glucose Calcium Lipase Discharge Plan - Discharge Disposition Patient Disposition: 01 Discharge Home - Discharge Condition Condition: Stable - Discharge Order Discharge Orders: Discharge Order (Routine); Ordered 01/20/18 Ordered By: Ira Martinez - Discharge Details Anticipated Discharge Date: 01/20/18 - Physicians Team Primary Care Provider: UNKNOWN, Attending Provider: Prem Cummins Other Providers: Paola Campbell MD - Rxs /Orders / Referrals /Forms Prescriptions: New cholestyramine (with sugar) 4 gram Powder In Packet 2 gm PO DAILY Qty: 30 RF: 0 fluoxetine 10 mg Capsule 30 mg PO DAILY Qty: 30 RF: 0 gemfibrozil [Lopid] 600 mg Tablet 600 mg PO BIDAC 30 Days RF: 1 niacin [Niaspan Extended-Release] 500 mg Tablet Extended Release 24 Hr 500 mg PO HS 30 Days Qty: 30 RF: 1 Continue insulin aspart U-100 100 unit/mL Solution 15 unit SUB-Q BID insulin degludec 100 unit/mL (3 mL) Insulin Pen 85 unit SUB-Q HS lisinopril 20 mg Tablet 20 mg PO DAILY metformin 500 mg Tablet Extended Release 24 Hr 1,000 mg PO BID [id number] oil [[place]-3 (with dpa)] 1,050-1,200 mg Capsule 1 cap PO DAILY pantoprazole 20 mg Tablet,Delayed Release (Dr/Ec) 20 mg PO DAILY Discontinued fenofibrate nanocrystallized 145 mg Tablet 145 mg PO ONCE fluoxetine 20 mg Capsule 20 mg PO QAM naproxen 500 mg Tablet 500 mg PO BID rosuvastatin 40 mg Tablet 40 mg PO DAILY Referrals: Niurka Us MD [Physician] - See Instructions (1 week) Paoal Campbell MD [Physician] - See Instructions (1 week) UNKNOWN, [Primary Care Provider] - See Instructions JENNY BRYSON M.D. [ENDOCRINOLOGY] - See Instructions (1 week) - Discharge Instructions Additional Instructions: Diabetic diet as tolerated Prescriptions given at time of discharge Take medication as prescribed Follow up with MD as instructed - Post Discharge Care Plan Care Plan Goals: Your Health Problems: Goals to Promote Your Health: * To prevent worsening of your condition * To maintain your health at the optimal level Directions to Meet Your Goals: * Take your medications as prescribed * Follow your dietary instruction * Follow activity as directed * Keep your appointments as scheduled * Take your immunizations and boosters as scheduled * If your symptoms worsen call your PCP * If no PCP go to Urgent Care or Emergency Room Smoking is dangerous to your health. Avoid second hand smoke. You may reach the 24-hour crisis hotline for domestic abuse at 3-030-868- 5967.Your Health Problems: Goals to Promote Your Health: * To prevent worsening of your condition * To maintain your health at the optimal level Directions to Meet Your Goals: * Take your medications as prescribed * Follow your dietary instruction * Follow activity as directed * Keep your appointments as scheduled * Take your immunizations and boosters as scheduled * If your symptoms worsen call your PCP * If no PCP go to Urgent Care or Emergency Room Smoking is dangerous to your health. Avoid second hand smoke. You may reach the 24-hour crisis hotline for domestic abuse at .
[2018-01-20 14:48] VITALS: BP 139/79; PULSE 16; TEMP 98.4
== END 2018-01-20 18:02 | disposition home or self-care (01) ==
LOC: N06 16:10
PROVIDERS: ADMIT Hospitalist; ATTEND Hospitalist